=== PATIENT | female | born 1950 | race Caucasian/White ===

== ENCOUNTER 2018-03-22 22:35 | Emergency (ER) | payer MEDICARE, OTHER ==
[~2018-03-22] VITALS: Ht 162.6 cm; Wt 59.0 kg
[~2018-03-22 22:35] MED LIST: ACET325T12 PO; AMIO200T4 PO; ASPI-667 PO; BUDE10.2 IH; CITA10TA4 PO; CLON0.5T11 PO; DENO60DI SQ; DRON400T PO; ESTR42.53 VG; LEVA15HF4 IH; Metoprolol Succinate PO; ONDA4TAB10 PO; PANT40TA3 PO; POLY17PO3 PO; SOLI5TAB2 PO; TROS20TA2 PO; WARF-35 PO
--- NOTE | 2018-03-22 22:35 | NUR ---
EKG JONNY, OUTBOUND SUPERVISOR AT BEDSIDE FOR EKG. DR TILLMAN NOTIFIED OF PATIENT ARRIVAL
--- NOTE | 2018-03-22 22:41 | PCM.EKG ---
[facility] Test Date: 2018-03-22 Test Time: 22:42:46 Pat Name: JOSE WATERS Department: Room: Gender: F Technical Support Representative: GO : 1950 Requested By: REGLA TILLMAN Order Number: [id number] Reading MD: Measurements Intervals [place] Rate: 107 P: OR: QRS: 82 QRSD: 78 T: 78 QT: 358 QTc: 477 Interpretive Statements Atrial fibrillation Abnormal ECG Compared to ECG 02/20/2018 09:14:32 No significant changes Please click the below link to view image of tracing.
[2018-03-22 22:44] VITALS: BP 116/42
[2018-03-22 22:48] LABS: BASOPHIL % 0.3 % (0.0-0.2); EOSINOPHIL # 0.1 10^3/uL (0.0-0.2); EOSINOPHIL % 1.1 % (0.0-5.0); LYMPHOCYTES # 1.6 10^3/uL (1.0-4.8); LYMPHOCYTES % 22.8 % (24.0-44.0); MEAN CELL HGB 30.1 pg (26-34); MEAN CELL HGB CONCENTRATION 32.1 g/dL (33-37); MEAN CORP VOLUME 93.8 fL (78-100); MEAN PLATELET VOLUME 8.7 fL (7.8-11.0); MONOCYTES # 0.9 10^3/uL (0.3-0.8); MONOCYTES % 12.8 % (5.0-12.0); NEUTROPHIL # 4.5 10^3/uL (1.8-7.7); NEUTROPHILS % 62.7 % (41.0-85.0); WHITE BLOOD CELL 7.2 10^3/uL (4.5-11.0)
--- NOTE | 2018-03-22 23:00 | NUR ---
DR TILLMAN AT BEDSIDE TO EVALUATE PATIENT.
--- NOTE | 2018-03-22 23:15 | ER.PDOC ---
General Chief Complaint: Palpitations Stated Complaint: A.FIB Time seen by MD: 23:13 Source: patient Exam Limitations: no limitations History of Present Illness Initial Comments Palpitations, took Metoprolol prior to coming to the ED. Timing/Duration: 1-3 hours Quality: fast Associated Symptoms: denies symptoms Allergies: Coded Allergies: Penicillins (Unverified Adverse Reaction, Unknown, DIARRHEA, 05/08/14) hydrocodone (Unverified Adverse Reaction, Unknown, NAUSEA, 05/08/14) Home Meds Reported Medications Metoprolol Succinate (METOPROLOL SUCCINATE) 25 Mg Tab.er.24h, 1 TAB PO DAILY, # 30 TAB 5 Refills 03/22/18 Trospium Chloride (TROSPIUM CHLORIDE) 20 Mg Tablet, 20 MG PO DAILY24, TABLET 02/19/18 Dronedarone Hcl (MULTAQ) 400 Mg Tablet, 1 TAB PO BID, #180 TAB 1 Refill 02/19/18 Warfarin Sodium (WARFARIN SODIUM) 5 Mg Tablet, 1 TAB PO DAILY, #30 TAB 5 Refills TAKE 1 TABLET ON , SUNDAY, SUNDAY, AND Sunday02/19/18 Warfarin Sodium (WARFARIN SODIUM) 5 Mg Tablet, 1.5 TAB PO DAILY24, #90 TAB 1 Refill TAKES 1.5 TABS ON SUNDAY, SUNDAY, Sunday02/19/18 Acetaminophen (TYLENOL) 325 Mg Tablet, 650 MG PO Q4HR PRN for PAIN, TABLET 05/08/14 Denosumab (PROLIA) 60 Mg/1 Ml Disp.syrin, 60 MG SQ TWICE YEARLY 05/08/14 Estradiol (ESTRACE) 42.5 Gm Cream.appl, 1 GM VG TWICE MONTHLY 05/08/14 Discontinued Scripts [Metoprolol Succinate] 25 MG TAB.ER.24H No Conflict Check, 25 MG PO BID for 30 Days, #60 TAB Prov:PINEDA HARVEY MD 02/21/18 Past Medical History Medical History: cardiac problems Surgical History: tonsillectomy LMP (females 10-50): hysterectomy Social History Smoking: non-smoker Alcohol Use: none Drug Use: none Constitutional: no symptoms reported EENTM: no symptoms reported Respiratory: no symptoms reported Cardiovascular: see HPI Gastrointestinal: no symptoms reported Genitourinary: no symptoms reported Musculoskeletal: no symptoms reported All Other Systems: Reviewed and Negative Physical Exam General Appearance: No Apparent Distress, WD/WN Neck: Non-Tender, Full Range of Motion, Supple, Normal Inspection Respiratory: chest non-tender, lungs clear, normal breath sounds, no respiratory distress, no accessory muscle use Cardiovascular: Normal Peripheral Pulses, Tachycardia, Irregularly Irregular Gastrointestinal: Normal Bowel Sounds, No Organomegaly, No Pulsatile Mass, Non Tender, Soft Extremities: Normal Range of Motion, Non-Tender, Normal Inspection, No Pedal Edema, No Calf Tenderness, Normal Capillary Refill Neurologic/Psychiatric: negative turner II-XII NML as Tested, No Motor/Sensory Deficits, Alert, Normal Mood/Affect, Oriented x 3 Skin: Normal Color, Warm/Dry Results/Orders Results/Orders Laboratory Tests Test 03/22/18 22:44 White Blood Count 7.2 10^3/uL (4.5-11.0) Red Blood Count 4.32 10^6/uL (4.00-5.20) Hemoglobin 13.0 g/dL (12.0-15.0) Hematocrit 40.5 % (36.0-46.0) Mean Corpuscular Volume 93.8 fL (78-100) Mean Corpuscular Hemoglobin 30.1 pg (26-34) Mean Corpuscular Hemoglobin Concent 32.1 g/dL (33-37) Red Cell Distribution Width 13.0 % (11.5-14.5) Platelet Count 282 10^3/uL (150-400) Mean Platelet Volume 8.7 fL (7.8-11.0) Neutrophils (%) (Auto) 62.7 % (41.0-85.0) Lymphocytes (%) (Auto) 22.8 % (24.0-44.0) Monocytes (%) (Auto) 12.8 % (5.0-12.0) Neutrophils # (Auto) 4.5 10^3/uL (1.8-7.7) Lymphocytes # (Auto) 1.6 10^3/uL (1.0-4.8) Monocytes # (Auto) 0.9 10^3/uL (0.3-0.8) Absolute Immature Granulocyte (auto 0.02 10^3 u/L (0-2) Eosinophils % 1.1 % (0.0-5.0) Basophils % 0.3 % (0.0-0.2) Basophils # 0.0 10^3/uL (0.0-0.1) Eosinophil Count 0.1 10^3/uL (0.0-0.2) Percent Immature Gran (Cell Imm) 0.30 % (0.00-0.50) Departure Time of Disposition: 23:51 Disposition: 02 XFER SHT-TRM HOSP Impression: Primary Impression: Atrial fibrillation with RVR Condition: Stable Referrals: VERN SILVESTRE MD (PCP) PRIMARY CARE PROVIDER Comments Transfer to [facility] for Dr. Fiore Duration or Time Spent with Pa: 60 mins REGLA TILLMAN MD Mar 22, 2018 23:15
[2018-03-22 23:18] LABS: ALANINE AMINOTRANSFERASE(ML) 20 U/L (12-78); ALKALINE PHOSPHATASE 67 U/L (50-136); ASPARTATE AMINO TRANSFERASE 18 U/L (0-35); CALCIUM 8.4 mg/dL (8.4-10.5); CARBON DIOXIDE 27.1 mmol/L (20.0-32); GLUCOSE 112 mg/dL (70-110)
[2018-03-22] MEDS ORDERED: METO-236 PO (23:24)
--- NOTE | 2018-03-22 23:25 | NUR ---
[facility] PATIENT HEART RATE BACK UP TO 125, DR TILLMAN STATES HE WILL CALL DR MEDINA FOR PATIENT'S [facility] OF M[facility].
[2018-03-22 23:29] VITALS: BP 102/68
[2018-03-22] MEDS ORDERED: LANOXIN IV STA (23:52)
[2018-03-22 23:55] VITALS: BP 110/65
[2018-03-23] MEDS ORDERED: LANOXIN ONE (00:02)
--- NOTE | 2018-03-23 00:15 | NUR ---
EMS DISPATCHED AT THIS TIME.
--- NOTE | 2018-03-23 00:22 | NUR ---
REPORT ATTEMPTED TO CALL AND GIVE REPORT CHARGE NURSE STATED PATIENT'S ROOM HAD A PATIENT IN IT ALREADY AND THEY NEEDED TO MOVE PEOPLE AROUND. MY RETURN NUMBER WAS LEFT FOR ACCEPTING NURSE, CHARGE NURSE STATES SHE WILL CALL ME WHEN SHE IS READY FOR REPORT.
--- NOTE | 2018-03-23 00:26 | NUR ---
EMS IN DEPARTMENT TO TRANSFER PATIENT TO [facility] VIA STRETCHER REPORT GIVEN TO MIGUEL ÁNGEL EMT
--- NOTE | 2018-03-23 00:34 | NUR ---
EMS OUT OF DEPARTMENT WITH PATIENT.
[2018-03-23 02:01] VITALS: BP 110/65
== END 2018-03-23 00:34 | disposition short-term general hospital (02) ==
LOC: ER 22:35
DX: I48.91 Unspecified atrial fibrillation (principal); Z90.89 Acquired absence of other organs; Z90.710 Acquired absence of both cervix and uterus; Z79.01 Long term (current) use of anticoagulants; Z79.891 Long term (current) use of opiate analgesic; Z79.899 Other long term (current) drug therapy; Z88.0 Allergy status to penicillin; Z88.5 Allergy status to narcotic agent
CPT/HCPCS: 36415; 80053; 82550; 82553; 84484; 85025; 93005; 96374; 99285; J1160

== ENCOUNTER → 2018-12-06 | Outpatient (CLI) | payer MEDICARE, OTHER ==
[~2018-12-06] MED LIST changes: +METO-236 PO; +POLY17PO28 PO; -POLY17PO3 PO
[2018-12-06 08:09] LABS: CALCIUM 8.9 mg/dL (8.4-10.5)
== END | disposition home or self-care (01) ==
LOC: LAB 07:40
PROVIDERS: ATTEND Internal Medicine Cardiovascular Disease
DX: I48.3 Typical atrial flutter (principal); I11.0 Hypertensive heart disease with heart failure; I50.9 Heart failure, unspecified; Z79.01 Long term (current) use of anticoagulants; Z90.49 Acquired absence of other specified parts of digestive tract; Z95.3 Presence of xenogenic heart valve; Z79.899 Other long term (current) drug therapy
CPT/HCPCS: 36415; 80053; 80061

== ENCOUNTER → 2019-03-10 | Outpatient (CLI) | payer MEDICARE, OTHER ==
--- NOTE | 2019-03-10 15:06 | DIREP ---
PROCEDURE:XRAY SHOULDER MIN 2 VWS-RT COMPARISON:None. INDICATIONS:M25.511 PAIN IN RIGHT SHOULDER FINDINGS: BONES:Normal. JOINTS:Normal glenohumeral and acromioclavicular joints. No evidence for dislocation. SOFT TISSUES:Normal. OTHER:Median sternotomy wires. CONCLUSION:No acute bony findings Dictated by: Woo Farris MD on 03/10/2019 at 01:57 PM Read in [place]
== END | disposition home or self-care (01) ==
LOC: RAD 14:36
PROVIDERS: ATTEND Nurse Practitioner
DX: M25.511 Pain in right shoulder (principal)
CPT/HCPCS: 73030-RT

== ENCOUNTER → 2019-03-20 | Outpatient (CLI) | payer MEDICARE, OTHER ==
[~2019-03-20] MED LIST changes: -CLON0.5T11 PO; +CLON0.5T3 PO
--- NOTE | 2019-03-20 13:22 | DIREP ---
PROCEDURE:US EXTREMITY UPPER SOFT TISSUE COMPARISON:None. INDICATIONS:R22.31 SWELLING, MASS AND LUMP RIGHT UPPER LIMB TECHNIQUE:Sonography of the right posterior upper arm was performed using grayscale and color Doppler imaging. FINDINGS: MASSES:Superficial isoechoic lesion identified measuring 5.6 x 1.7 cm. FLUID COLLECTIONS:None. OTHER:Negative. CONCLUSION:5.6 cm isoechoic lesion in the area of concern. This is nonspecific on ultrasound but is most likely to represent lipoma. Dictated by: LIZ Physician on 03/20/2019 at 01:06 PM ac
== END | disposition home or self-care (01) ==
LOC: RAD 10:58
PROVIDERS: ATTEND Nurse Practitioner
DX: R22.31 Localized swelling, mass and lump, right upper limb (principal)
CPT/HCPCS: 76882

== ENCOUNTER → 2019-04-10 | Outpatient (CLI) | payer MEDICARE, OTHER ==
[~2019-04-10] MED LIST changes: +CLON0.5T11 PO; -CLON0.5T3 PO
--- NOTE | 2019-04-10 12:01 | DIREP ---
PROCEDURE:XRAY HUMERUS MIN 2 VWS-RT COMPARISON:None. INDICATIONS:M25.511 PAIN IN RIGHT SHOULDER, M79.601 PAIN IN RIGHT ARM FINDINGS: Four views of the right humerus. The distal humerus is not well evaluated at the elbow given positioning. If there is clinical concern for an injury at the elbow please consider dedicated radiographs. No fracture or dislocation identified. No radiopaque foreign body. CONCLUSION: 1. Right humerus, unremarkable. Dictated by: Milly Mcdermott MD on 04/10/2019 at 11:58 AM
== END | disposition home or self-care (01) ==
LOC: RAD 10:17
PROVIDERS: ATTEND Internal Medicine
DX: M25.511 Pain in right shoulder (principal); M79.601 Pain in right arm
CPT/HCPCS: 73060-RT

== ENCOUNTER → 2019-04-22 | Outpatient (CLI) | payer MEDICARE, OTHER ==
--- NOTE | 2019-04-22 23:41 | DIREP ---
PROCEDURE:MRI UPPER EXTREM JOINT W O CON RIGHT COMPARISON:None. INDICATIONS:R-C TEAR TECHNIQUE:A variety of imaging planes and parameters were utilized for visualization of suspected pathology. Images were performed without contrast. FINDINGS: ROTATOR CUFF: Severe tendinosis of supraspinatus with interstitial footprint tear measuring approximately 7 x 9 mm. Additionally, there is a perforative full-thickness tear of the tendon identified on sagittal image 25 and coronal image 10. There is moderate tendinopathy of infraspinatus without visualized tear. Mild sub scapularis tendinosis without tear. BICEPS TENDON: Normal intraarticular and extra-articular biceps. LABRUM :Mild glenohumeral osteoarthritis. No full thickness labral tear on this non-arthrogram study. AC JOINT: Mild acromioclavicular osteoarthrosis. Type I acromion. Mild mass effect on the myotendinous junction of supraspinatus from subacromial spur. Subacromial space measures 5 mm at its narrowest point BONES:Subcortical cyst formation greater tuberosity OTHER:Significant fluid in the subacromial subdeltoid bursa. No loose bodies. CONCLUSION: 1. Severe tendinosis of supraspinatus with perforative full-thickness tear and insertional footprint tear as detailed above. 2. Moderate tendinopathy of infraspinatus and mild subscapularis tendinopathy. No muscle atrophy. 3. Mild glenohumeral and acromioclavicular osteoarthritis. 4. Significant fluid in the subacromial subdeltoid bursa. 5. Subacromial spur resulting in narrowed subacromial space measuring 5 mm.. Dictated by: Kevon Damon DO on 04/22/2019 at 11:35 PM
== END | disposition home or self-care (01) ==
LOC: RAD 13:59
PROVIDERS: ATTEND Orthopaedic Surgery
DX: M75.121 Complete rotator cuff tear or rupture of right shoulder, not specified as traumatic (principal); M19.011 Primary osteoarthritis, right shoulder; M75.81 Other shoulder lesions, right shoulder
CPT/HCPCS: 73221-RT

== ENCOUNTER → 2020-09-17 | Outpatient (CLI) | payer MEDICARE, OTHER ==
[~2020-09-17] MED LIST changes: -AMIO200T4 PO; +AMIO200T6 PO; -CLON0.5T11 PO; +CLON0.5T3 PO; +POLY17PO PO; -POLY17PO28 PO
--- NOTE | 2020-09-17 13:04 | DIREP ---
PROCEDURE:XRAY KNEE 2 VWS-RT COMPARISON:None. INDICATIONS:M25.561 RT KNEE PAIN FINDINGS:AP and lateral view of the right knee BONES:No evidence of acute fracture. JOINTS:Osteochondral defect of the superior aspect of the scalp measures 5.8 mm. No joint effusion. No significant narrowing of the medial lateral compartment. SOFT TISSUES:Normal. OTHER:No additional findings. CONCLUSION: No fracture. No dislocation. There is a osteochondral defect involving the patella rib at the level of the patellofemoral joint the correlation with MRI may prove helpful. Dictated by: Juan Vallejo MD on 09/17/2020 at 12:45 PM
--- NOTE | 2020-09-17 13:06 | DIREP ---
PROCEDURE:XRAY SPINE LUMBAR 2-3 VWS COMPARISON:None. INDICATIONS:M54.5 LOW BACK PAIN M54.17 RADICULOPATHY TECHNIQUE:AP, lateral, and coned down lateral views of the lumbar spine are provided. FINDINGS: ALIGNMENT:Slight retrolisthesis of L5 of 2 mm with respect to S1. VERTEBRAE:Normal. DISK SPACES:Moderate loss of disc space of L5/S1. SPONDYLOLISTHESIS:None. SACROILIAC JOINTS:Normal. OTHER:Atherosclerotic aortic vascular calcifications.. CONCLUSION:No fracture. Mild to moderate degenerative disc disease of L5/S1 with slight 1 anterolisthesis of L5 with respect to S1. Dictated by: Juan Vallejo MD on 09/17/2020 at 12:58 PM
== END | disposition home or self-care (01) ==
LOC: RAD 11:07
PROVIDERS: ATTEND Internal Medicine
DX: M43.17 Spondylolisthesis, lumbosacral region (principal); M51.17 Intervertebral disc disorders with radiculopathy, lumbosacral region; I70.0 Atherosclerosis of aorta; M21.861 Other specified acquired deformities of right lower leg; M25.561 Pain in right knee; M54.5 Low back pain
CPT/HCPCS: 72100; 73560

== ENCOUNTER → 2020-09-29 | Outpatient (CLI) | payer MEDICARE, OTHER ==
--- NOTE | 2020-09-29 15:54 | DIREP ---
PROCEDURE:MRI L SPINE W O CONTRAST TECHNIQUE:Multiplanar MR images of the lumbar spine were obtained without contrast. COMPARISON:[facility], CR, XRAY SPINE LUMBAR 2-3 VWS, 09/17/2020, 11:18 AM. INDICATIONS:M54.5 LOW BACK PAIN FINDINGS: ALIGNMENT:No significant scoliosis. Normal lumbar lordosis. Vertebral body alignment is maintained. Facet joints are intact. VERTEBRAE:No compression deformity or suspicious bone marrow edema. There are multiple vertebral body hemangioma, including typical appearing hemangioma at L1, L2 and L4. There is an approximate 1.9 cm increased T2 signal focus within the left pedicle at T12 without significant expansion of the pedicle. This is of indeterminate etiology, but may potentially reflect an atypical hemangioma. PARASPINAL AREA:No suspicious abnormality of the imaged paraspinal soft tissues. OTHER:The conus medullaris terminates at the level of L1-L2. LUMBAR DISC LEVELS T12-L1:No significant posterior disc pathology. No spinal stenosis or neural foraminal encroachment. L1-2:No significant posterior disc pathology. Minimal facet arthropathy. No spinal stenosis or neural foraminal encroachment. L2-3:No significant posterior disc pathology. Minimal facet arthropathy. No spinal stenosis or neural foraminal encroachment. L3-4:No significant posterior disc pathology. Mild facet arthropathy. No spinal stenosis or neural foraminal encroachment. L4-5:No significant posterior disc pathology. Mild facet arthropathy. No spinal stenosis or significant neural foraminal encroachment. L5-S1:Mild disc bulge with superimposed small left paracentral disc protrusion. Mild facet arthropathy, left greater than right. This does not result in significant spinal stenosis; however, there is narrowing of the left lateral recess with mild bilateral neural foraminal encroachment. CONCLUSION: 1. No acute osseous abnormality or vertebral body malalignment. 2. Relatively low-grade degenerative disc and spine disease, most significant at L5-S1 where there is a mild disc bulge and superimposed small left paracentral disc protrusion. This does not result in significant spinal stenosis; however, there is narrowing of the left lateral recess with mild bilateral neural foraminal encroachment. 3. Multiple vertebral body hemangioma within the lumbar spine with an indeterminate lesion within the left pedicle at T12, potentially reflecting an atypical hemangioma. Please correlate for the location of reported pain. Dictated by: Myron Pederson M.D. On 09/29/2020 at 03:37 PM
== END | disposition home or self-care (01) ==
LOC: RAD 11:15
PROVIDERS: ATTEND Internal Medicine
DX: M47.817 Spondylosis without myelopathy or radiculopathy, lumbosacral region (principal); M51.27 Other intervertebral disc displacement, lumbosacral region; D18.09 Hemangioma of other sites
CPT/HCPCS: 72148

== ENCOUNTER → 2021-01-06 | Outpatient (CLI) | payer MEDICARE, OTHER ==
[~2021-01-06] MED LIST changes: -DRON400T PO; +DRON400T6 PO
== END | disposition home or self-care (01) ==
LOC: NPLAB 12:57
PROVIDERS: ATTEND Internal Medicine
DX: U07.1 COVID-19 (principal); R50.9 Fever, unspecified
CPT/HCPCS: 87633

== ENCOUNTER → 2021-01-07 | Outpatient (CLI) | payer MEDICARE, OTHER ==
[~2021-01-07] MED LIST changes: +[UNRECOGNIZED DRUG - OTHER] IV ONE
[2021-01-07 10:35] VITALS: BP 143/68
[2021-01-07 11:15] VITALS: BP 120/64
[2021-01-07 11:40] VITALS: BP 126/62
[2021-01-07 12:10] VITALS: BP 121/86
[2021-01-07 12:39] VITALS: BP 116/87
== END | disposition home or self-care (01) ==
LOC: OPTX 10:02
PROVIDERS: ATTEND Internal Medicine
DX: U07.1 COVID-19 (principal); R50.9 Fever, unspecified
CPT/HCPCS: M0243; Q0243 ×2